=== PATIENT | female | born 1955 | race Caucasian/White ===

== ENCOUNTER → 2017-11-22 | Outpatient (CLI) | payer OTHER ==
[2015-11-27 11:21] VITALS: BP 119/68
[2017-11-28 06:23] LABS: HCV VIRAL LOG <1.2 log IU
== END ==
LOC: LAB 14:26
PROVIDERS: ATTEND Internal Medicine Gastroenterology
DX: B18.2 Chronic viral hepatitis C (principal)
CPT/HCPCS: 87522